=== PATIENT | female | born 1950 | race Caucasian/White ===

== ENCOUNTER 2017-02-01 16:05 | Emergency (ER) | payer OTHER, MEDICARE ==
--- NOTE | 2017-02-01 16:11 | ED HEAD/FACIAL INJ COMPLAINT ---
History of Present Illness General Chief Complaint: Laceration Procedure Stated Complaint: LAC TO LEFT FOREHEAD, S/P TRIP AND FALL Source: patient, old records Exam Limitations: no limitations Vital Signs & Intake/Output Vital Signs & Intake/Output Vital Signs Date Time Temp Pulse Resp B/P B/P Pulse O2 O2 Flow FiO2 Mean Ox Delivery Rate 02/01 1722 98.0 75 20 175/98 99 Room Air 02/01 1611 98.1 87 15 161/97 99 Room Air Room Air Allergies Coded Allergies: cortisone (Severe, PASS OUT 02/01/17) latex (Intermediate, RASH, DIARRHEA 02/01/17) Uncoded Allergies: ENVIRONMENTAL ALLERGIES (Intermediate, ASTHMA, SINUSITIS, EXZEMA 05/25/12) Reconcile Medications Ondansetron (Zofran Odt) 4 MG TAB.RAPDIS 1 TAB SL TID PRN nausea Triage Nurses Notes Reviewed? yes Onset: Abrupt Severity: mild Severity Numbers: 2 Location: frontal Method of Injury: FALL Loss of Consciousness: no loss of consciousness Associated Symptoms: DENIES HPI: 66-year-old female presents to the ER for evaluation with her status post sustaining a laceration to her forehead. She was attempting to frighten her granddaughter when she states she slipped on the carpet and her head hit the door. There is no loss of consciousness. She now complaining of a mild aching frontal headache. No vision changes neck or back pain she denies any other injury. Her last tetanus is unknown. No modifying factors or associated symptoms otherwise. (ADORE CANO) Past History Travel History Traveled to [place] past 21 day No Medical History Any Pertinent Medical History? 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 No (ADORE CANO) Review of Systems Review of Systems Constitutional: Reports: see HPI. All Other Systems: Reviewed and Negative Comments Review of systems: See HPI, All other systems negative. Constitutional, no chills no fever, no malaise HEENT: No visual changes no sore throat no congestion, no ear pain Cardiovascular: No chest pain , no palpitation Skin: no rashes, no change in skin Respiratory: No dyspnea no cough no sputum GI: No nausea no vomiting, no diarrhea, Muscle skeletal: No joint pain, no joint swelling, no back pain, no neck pain, Neurologic: No numbness no headache Psych: No stress Heme/endocrine: No bruising no bleeding Immunology: No lymphadenopathy (ADORE CANO) Physical Exam Physical Exam General Appearance: well developed/nourished, alert, awake Cranial Nerves: normal hearing, normal speech Comments: Well-developed well-nourished patient in no apparent distress. Head/Face: There is a 3 cm superficial linear laceration noted to the left forehead, no surrounding ecchymosis or swelling nontender the rest of scalp is atraumatic, no maxillary/frontal sinus tenderness, no facial swelling Eyes: PERRL, EOMI, no conjunctival injection. No nystagmus, no entrapment Ear:External auditory canals clear, no erythema, no FB. Nose: atraumatic.Normal inspection Throat: Moist mucous membranes.Pharynx normal. No pharyngeal erythema/exudate seen. No stridor/drooling or assymetry. No swelling or edema. Neck: Supple, nontender FROM Back: FROM Cardiovascular: Regular rate and rhythms no murmurs rubs or gallops, Respiratory: Chest nontender.There were no bony deformities, no asymmetry. No respiratory distress. Patient speaking in full complete sentences. Breath sounds clear to auscultation bilaterally: NO W/R/R Extremities: full range of motion for facial abrasion noted to the right elbow, patient has full range of motion rest of her extremities are atraumatic Neuro: awake, alert, and oriented to person, place and time. There were no obvious focal neurologic abnormalities. Skin: Warm & dry;No appreciable rash on exposed skin Psych: Mood affect normal, normal memory normal judgment. Diagram Head: 1) Laceration as described above (ADORE CANO) Progress Differential Diagnosis: facial fracture, globe injury, ICH, orbit fracture Plan of Care: Current Medications Sig/Jose Start time Last Medication Dose Stop Time Status Admin Ibuprofen 800 MG ONCE ONE 02/01 1630 AC (Motrin) 02/01 163 Tetanus/Diphtheria 0.5 ML ONCE ONE 02/01 1630 AC Toxoids Adsorbed 02/01 1631 (Decavac) Tetracaine/ 1 BOT ONCE ONE 02/01 1630 AC Epinephrine/Lidocaine 02/01 163 (LET Topical) Patient has no neurologic deficits. Verbal consent was obtained the area was thoroughly irrigated normal saline Betadine peroxide. 11 absorbable sutures5-0 PLACED by me. Patient tolerated procedure well Steri-Strips were applied discussed with him return precautions the sutures will dissolve on their own answered all her questions cleared for discharge (ADORE CANO) Departure Departure Time of Disposition: 1716 Disposition: HOME OR SELF CARE Condition: Stable Clinical Impression Primary Impression: Facial laceration Referrals: DEANN MARCOS,CRISTIN Lopes Additional Instructions: Keep area clean and covered as discussed, bacitracin daily. The sutures will dissolve on their own Please understand that foreign bodies such as glass or wood may not be visible to the naked eye or on plain x-rays. If the wound becomes red, swollen, increasingly more painful or if there is any drainage from the wound, please have it reevaluated by a physician for the possibility of a retained foreign body. Departure Forms: Customer Survey General Discharge Information Prescriptions: Current Visit Scripts Ondansetron (Zofran Odt) 1 TAB SL TID PRN nausea #10 TAB (ADORE CANO) PA/FACING CUTTING MACHINE OPERATOR Co-Sign Statement Statement: ED Attending supervision documentation- x I saw and evaluated the patient. I have also reviewed all the pertinent lab results and diagnostic results. I agree with the findings and the plan of care as documented in the PA's/FACING CUTTING MACHINE OPERATOR's documentation. [] I have reviewed the ED Record and agree with the PA's/FACING CUTTING MACHINE OPERATOR's documentation. [] Additions or exceptions (if any) to the PAs/FACING CUTTING MACHINE OPERATOR's note and plan are summarized below: [] (JIMENA MARCOS,AISSATOU) Procedures Laceration/Wound Repair Laceration/Wound Repair: Wound Location: face Wound's Depth, Shape: linear, superficial Wound Length (cm): 3 Wound Explored: clean, no foreign body removed, irrigated extensively Irrigated w/ Saline (ccs): 200 Betadine Prep? No Anesthesia: 1% lidocaine Volume Anesthetic (ccs): 200 Suture Size/Type: 5:0 Number of Sutures: 11 Layer Closure? No Sterile Dressing Applied: Yes Date of Last Tetanus: 02/01/17 Tetanus Status: up to date (ADORE CANO)
[2017-02-01] MEDS ORDERED: ZOFRAN ODT4 M1 SL (17:18)
[2017-02-01 17:22] VITALS: BP 175/98
== END 2017-02-01 17:23 ==
LOC: ERH 16:05
DX: S01.81XA Laceration without foreign body of other part of head, initial encounter (principal); W01.198A Fall on same level from slipping, tripping and stumbling with subsequent striking against other object, initial encounter; Y93.89 Activity, other specified; Y92.9 Unspecified place or not applicable
CPT/HCPCS: 90471; 90714